=== PATIENT | male | born 1975 | race Caucasian/White ===

== ENCOUNTER 2019-02-22 17:18 | Emergency (ER) | payer BC ==
--- NOTE | 2019-02-22 17:37 | EDM.PDOC ---
ED HPI GENERAL MEDICAL PROBLEM - General Chief Complaint: Eye Problems Stated Complaint: LEFT EYE IRRITATION Time Seen by Provider: 02/22/19 17:36 Source of Information: Reports: Patient, Family (), Old Records ([facility] chart/EMR) History Limitations: Reports: No Limitations - History of Present Illness INITIAL COMMENTS - FREE TEXT/NARRATIVE: The patient was brought to the emergency room via private automobile by his for evaluation of a probable foreign body in his left eye. He was using an air compressor in his garage at about 16:00 hours when he felt a foreign body in his left eye. He is uncertain whether this was dust, etc. with no history of working with metal, etc.. The patient was wearing his regular glasses with safety not glasses not worn at that time. He has not significantly injured this eye in the past. He does not know when he had his last tetanus booster. The patient denies any chest pain/pressure, heart flutter, dizziness, orthostasis, orthopnea, diaphoresis, paresthesias, recent decreased exercise tolerance, or any other anginal-type symptoms. No recent history of abdominal pain, heartburn , nausea, diarrhea, melena, gross hematochezia, or any food intolerance, including fatty foods, etc.. The patient also denies any recent fever, cough, wheezing, dyspnea, etc.. No history of recent headaches, visual changes, diplopia, change in mental status, or other change in neurological status. Onset: Today, Sudden Onset Date: 02/22/19 Onset Time: 16:00 Duration: Constant Location: Reports: Other (Left eye). Denies: Head, Face, Neck, Chest, Abdomen, Back, Upper Extremity, Left, Upper Extremity, Right, Radiates to Quality: Reports: Same as Previous Episode (Foreign body sensation) Severity: Mild Improves with: Reports: None Worsens with: Reports: None Context: Reports: Trauma (As above). Denies: Sick Contact Associated Symptoms: Denies: Confusion, Chest Pain, Cough, Diaphoresis, Fever/ Chills, Headaches, Loss of Appetite, Malaise, Nausea/Vomiting, Rash, Shortness of Breath, Syncope, Weakness Treatments MOISTURE TESTER: Reports: Other (see below) (None) Left Eye Pain Score (Numeric/FACES): 3 - Related Data Allergies Allergy/AdvReac Type Severity Reaction Status Date / Time No Known Allergies Allergy Verified 02/22/19 17:23 Home Meds: Home Meds Albuterol [Proventil HFA] 1 inh PO Q4HR PRN 08/06/13 [History] Fluticasone/Salmeterol [Advair 250-50 Diskus] 1 inh PO BID 08/06/13 [History] Promethazine [Phenergan] 25 mg PO Q6H PRN #14 tab 08/06/13 [Rx] Lisinopril 20 mg PO DAILY 02/22/19 [History] Polymyxin B/Trimethoprim [PolyTrim Ophth Soln] 2 drop EYELF QID #1 bottle [Rx] Past Medical History HEENT History: Reports: Allergic Rhinitis, Impaired Vision, Other (See Below). Denies: Cataract, Glaucoma, Hard of Hearing, Macular Degeneration, Otitis Media , Retinal Detachment Other HEENT History: He wears glasses. Cardiovascular History: Reports: Hypertension, Other (See Below). Denies: Afib , Aneurysm, Arrhythmia, Blood Clots/VTE/DVT, CAD, Heart Murmur, High Cholesterol , VT, PVD, Syncope Other Cardiovascular History: History of fatty liver Respiratory History: Reports: Asthma, Bronchitis, Recurrent. Denies: COPD, Intubation, Difficult, Intubation, Previous, PE, Pneumothorax, Sleep Apnea, TB Gastrointestinal History: Reports: Other (See Below) Other Gastrointestinal History: Fatty liver by ultrasound Genitourinary History: Reports: None. Denies: Acute Renal Failure, BPH, Chronic Renal Insuffiency, Renal Calculus, Retention, Urinary, Urinary Incontinence, UTI, Recurrent Musculoskeletal History: Reports: None. Denies: Arthritis, Back Pain, Chronic, Fracture, Gout, Neck Pain, Chronic, Osteoarthritis, RA, SLE Neurological History: Reports: Vertigo, Other (See Below). Denies: Cerebral Aneurysms, Concussion, CVA, Head Trauma, Migraines, MS, Neuropathy, Peripheral, Parkinson's, Seizure, TIA Other Neuro History: Chronic vertigo Psychiatric History: Reports: Depression, Other (See Below). Denies: Anxiety Other Psychiatric History: History of situational depression at the of his brother. Endocrine/Metabolic History: Reports: Obesity/BMI 30+. Denies: Diabetes, Type I , Diabetes, Type II, Hypothyroidism, IDDM Hematologic History: Reports: None. Denies: Anemia, Blood Transfusion(s) Immunologic History: Reports: Other (See Below). Denies: AIDS, HIV, SLE Other Immunologic History: Recurrent herpes simplex type I - Infectious Disease History Infectious Disease History: Reports: Chicken Pox, Other (See Below). Denies: C- Difficile, Measles, Meningitis, Mononucleosis, MRSA, Mumps, Pertussis (Whooping Cough), Rubella, Scarlet Fever, Shingles, TB, VRE Other Infectious Disease History: Recurrent herpes simplex type I - Past Surgical History Head Surgeries/Procedures: Reports: None HEENT Surgical History: Reports: Naso-Sinus Surgery, Other (See Below). Denies : Adenoidectomy, Eye Surgery, Laser Surgery, LASIK, Myringotomy w Tube(s), Oral Surgery, Tonsillectomy Other HEENT Surgeries/Procedures: Rhinoplasty at age 21 for deviated septum repair. Cardiovascular Surgical History: Reports: None. Denies: Varicose Respiratory Surgical History: Reports: None. Denies: Thoracentesis GI Surgical History: Reports: None. Denies: Appendectomy, Colonoscopy, EGD, Hernia, Abdominal, Hernia, Inguinal, Hernia Repair/Other, Keagan Fundoplication Male Surgical History: Reports: Circumcision, Other (See Below). Denies: TURP-Transurethral Resection of Prostate, Vasectomy Other Male Surgeries/Procedures: Circumcision as an . Endocrine Surgical History: Reports: None. Denies: Thyroid Biopsy Neurological Surgical History: Reports: None. Denies: C-Spine, Discectomy, Laminectomy, Lumbar Spine, Sacral Spine, Spinal Fusion, Thoracic Spine, Vertebroplasty Musculoskeletal Surgical History: Reports: None. Denies: Arthroscopic Knee, Arthroscopic Procedure, Carpal Tunnel, Ganglion Cyst, Joint Replacement, ORIF, Shoulder Surgery Oncologic Surgical History: Reports: None Dermatological Surgical History: Reports: None - Past Imaging History Past Imaging History: Reports: Stress Testing (02/09/10.), Ultrasound (Abdominal ultrasound on 02/21/10.) Social & Family History - Family History Cardiac: Reports: Aneurysm, CAD, Hypertension, VT, Other (See Below) Other Cardiac Family History: Father with recurrent VT with secondary cardiomyopathy requiring transplant fatal in his 70s. Brother with fatal aortic aneurysm in his 40s. Parents with hypertension. Respiratory: Reports: Asthma Musculoskeletal: Reports: Arthritis, Other (See Below) Other Musculoskeletal Family History: Mother with Jaylen's disease. Endocrine/Metabolic: Reports: Diabetes, type II, IDDM, Other (See Below) Other Endocrine/Metabolic Family History: Mother with IDDM. - Tobacco Use Smoking Status *Q: Former Smoker Tobacco Use Within Last Twelve Months: No Years of Tobacco use: 3 Packs/Tins Daily: 0.5 Used Tobacco, but Quit: Yes Month/Year Tobacco Last Used: 1999 Smoking Cessation Information Provided To Patient: No Second Hand Smoke Exposure: No Second Hand Smoke Education Provided: No - Caffeine Use Caffeine Use: Reports: Coffee Caffeine Use Comment: ONE DAILY - Alcohol Use Alcohol Use History: Yes Days Per Week of Alcohol Use: 2 Number of Drinks Per Day: 2 Number of Drinks Per Day Comment: Usually beer. No previous DWIs, problems with alcohol abuse, etc. 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 ED EXAM GENERAL W FULL EYE - Physical Exam Exam: See Below Exam Limited By: No Limitations General Appearance: Alert, WD/WN, No Apparent Distress Eye Exam: Right Eye: Corneal Abrasion (0.1 mm and mid pupil region. No foreign body noted.), Left Eye: Conjunctival Injection (Mild), Bilateral Eye: Normal Fundi, PERRL, Vision Changes (20/20 both eyes and 20/25 left eye both with corrected vision), Other (No foreign body by lid eversion) Visual Acuity (L) 20/: 25 With Correction: Yes Eyelids: Bilateral: Normal Appearance Conjunctiva & Sclera: Left: Discharge (Minimal clear drainage), Injected (Mild) Cornea Exam: Left: Examined with Flourescein (1 mm superficial corneal ulcer as above) Extraocular Movements: Bilateral: Intact Pupils: Normal Accommodation Pupillary Size: Bilateral: 6 mm Pupillary Reaction: Bilateral: Brisk Anterior Chamber: Bilateral: Normal Appearance Posterior Chamber: Bilateral: Normal Funduscopic Ears: Normal External Exam, Normal Canal, Hearing Grossly Normal, Normal TMs Nose: Normal Inspection, Normal Mucosa, No Blood, Clear Rhinorrhea (Bilateral mild) Throat/Mouth: Normal Inspection, Normal Lips, Normal Teeth, Normal Gums, Normal Oropharynx, Normal Voice, No Airway Compromise. No: Dysphagia, Perioral Cyanosis Head: Atraumatic, Normocephalic. No: Facial Swelling, Facial Tenderness, Sinus Tenderness Neck: Normal Inspection, Supple, Non-Tender, Full Range of Motion. No: Lymphadenopathy (L), Lymphadenopathy (R), Thyromegaly Respiratory/Chest: No Respiratory Distress, Lungs Clear, Normal Breath Sounds, No Accessory Muscle Use, Chest Non-Tender. No: Pleural Rub, Retractions Cardiovascular: Normal Peripheral Pulses, Regular Rate, Rhythm, No Edema, No Gallop, No JVD, No Murmur, No Rub. No: Gallop/S3, Gallop/S4, Friction Rub GI/Abdominal: Normal Bowel Sounds, Soft, Non-Tender, No Organomegaly, No Distention, No Abnormal Bruit, No Mass, Other (Obese). No: Guarding (Male) Exam: Deferred Rectal (Males) Exam: Deferred Back Exam: Normal Inspection, Full Range of Motion. No: CVA Tenderness (L), CVA Tenderness (R), Muscle Spasm Extremities: Normal Inspection, Normal Range of Motion, Non-Tender, No Pedal Edema, Normal Capillary Refill. No: Nura's Sign Neurological: Alert, Oriented, CN II-XII Intact, Normal Cognition, Normal Gait, No Motor/Sensory Deficits Psychiatric: Normal Affect, Normal Mood Skin Exam: Warm, Dry, Intact, Normal Color, No Rash, Tattoo(s) (Multiple). No: Diaphoretic Lymphatic: No Adenopathy ED EYE w/ Add Procedure - Eye Procedure Alcaine Drops Administered: Yes Eye Irrigated w/ Saline (ccs): 30 Antibiotic Oinment/Drps Admin: Left Eye (Polytrim ophthalmic solution2 drops by nurse) Course - Vital Signs Last Recorded V/S: Last Vital Signs Temp 36.8 C 02/22/19 17:18 Pulse 99 02/22/19 17:30 Resp 20 02/22/19 17:30 BP 152/97 H 02/22/19 18:06 Pulse Ox 95 02/22/19 17:30 Vital Signs - 24 hr 02/22/19 02/22/1902/22/19 17:18 17:30 18:06 Temperature [ 36.8 C Temporal] Pulse, 95 99 Peripheral [ Right Pulse Oximetry] Respiratory 20 20 Rate Blood Pressure 153/110 H 147/113 H 152/97 H [Right Upper Arm] O2 Sat by Pulse 96 95 Oximetry - Orders/Labs/Meds Orders: Active Orders 24 hr Category Date Time Status Vaccines to be Administered [RC] PER UNIT ROUTINE Care 02/22/19 18:03 Ordered Obtain Past Medical Record [OM.PC] Routine Oth 02/22/19 17:38 Active Labs: None Meds: Medications Discontinued Medications Generic Name Dose Route Start Last Admin Trade Name Freq PRN Reason Stop Dose Admin Balanced Salt Solution 30 ml 02/22/19 17:38 02/22/19 17:47 Eye Stream Eye Rinse EYELF 02/22/19 17:39 30 ml ONETIME ONE Administration Diphtheria/Tetanus/Acell Pertussis 0.5 ml 02/22/19 18:03 02/22/19 18:08 Adacel IM 02/22/19 18:04 0.5 ml .ONCE ONE Administration Tetracaine HCl 1 ml 02/22/19 17:38 02/22/19 17:47 Tetracaine 0.5% Steri-Unit Gay EYELF 02/22/19 17:39 3 drop ASDIRECTED ONE Administration - Radiology Interpretation Free Text/Narrative:: None Departure - Departure Time of Disposition: 18:20 Disposition: Home, Self-Care 01 Condition: Good Clinical Impression: Chronic vertigo, Fatty liver, Asthma Corneal abrasion Qualifiers: Encounter type: initial encounter Laterality: left Qualified Code(s): S05.02XA - Injury of conjunctiva and corneal abrasion without foreign body, left eye, initial encounter Hypertension Qualifiers: Hypertension type: essential hypertension Qualified Code(s): I10 - Essential ( primary) hypertension Allergic rhinitis Qualifiers: Allergic rhinitis trigger: other Allergic rhinitis seasonality: non-seasonal Qualified Code(s): J30.89 - Other allergic rhinitis - Discharge Information *PRESCRIPTION DRUG MONITORING PROGRAM REVIEWED*: Not Applicable *COPY OF PRESCRIPTION DRUG MONITORING REPORT IN PATIENT SHAGGY: Not Applicable Prescriptions: Polymyxin B/Trimethoprim [PolyTrim Ophth Soln] 2 drop EYELF QID #1 bottle Instructions: Eye Foreign Body, [id number], Corneal Abrasion, [id number] Forms: ED Department Discharge Additional Instructions: 1. Follow up with your regular provider in 10-14 days as needed, if symptoms persist. Bring these discharge instructions with you to that visit.. 2. Polytrim eyedrops 2 drops in the affected eye 4 times a day with every 2 hours as needed for at least 5 days AND until 48 hours after complete resolution of symptoms as directed. You may use additional OTC artificial tears as needed as per label instructions. 3. Wear safety glasses with similar activities in the future as discussed 4. Tylenol 650 mg by mouth every 4 hours and/or OTC ibuprofen 2-3 tabs by mouth every 6 hours with food as directed./needed. You may stagger these medications for 48-72 hours only, which essentially means that you are receiving a pain medication about every 2 hours. 5. Immediately after this visit verify that your cellular telephone's voicemail has been activated and is empty. Also verify that your home telephone 's answering machine is operating properly and has space to receive messages. Note that it is sometimes necessary for us to be able to contact you at a later date to discuss your medical care. 6. Please remember that we are ALWAYS here for you and want to answer any questions you may have. Feel free to call the hospital any time and we call you back CORINNE. 7. Strict compliance with all medical therapy as discussed. Continue to observe your blood pressures and pulses closely through your regular provider. - Problem List & Annotations (1) Corneal abrasion SNOMED Code(s): 00930104 Code(s): S05.00XA - INJ CONJUNCTIVA AND CORNEAL ABRASION W/O FB, UNSP EYE, INIT Status: Acute Priority: High Onset Date: 02/22/19 Annotation/ Comment:: Polytrim ophthalmic solution initiated in the emergency room as above with emergency room prescription provided. Patient cautioned to wear safety glasses at all times. No evidence of foreign body by extensive exam, including perea lamp, etc. Qualifiers: Encounter type: initial encounter Laterality: left Qualified Code(s): S05.02XA - Injury of conjunctiva and corneal abrasion without foreign body, left eye, initial encounter (2) Hypertension SNOMED Code(s): 94995733 Code(s): I10 - ESSENTIAL (PRIMARY) HYPERTENSION Status: Acute Priority: High Annotation/Comment:: Blood pressure somewhat elevated today with the patient having not taken his medications for the last few days. He did take his medications this morning, however. Medication compliance is an issue per history from his . Therapeutic drug levels, importance of medication compliance, risk of CVA, etc. extensively discussed. Continue to observe closely by his regular provider. Qualifiers: Hypertension type: essential hypertension Qualified Code(s): I10 - Essential (primary) hypertension (3) Allergic rhinitis SNOMED Code(s): 50247052 Code(s): J30.9 - ALLERGIC RHINITIS, UNSPECIFIED Status: Chronic Priority : Medium Annotation/Comment:: Somewhat poor control recently. Observe for now. No recent fever or bronchitic type symptoms. Note current heart this time. Qualifiers: Allergic rhinitis trigger: other Allergic rhinitis seasonality: non- seasonal Qualified Code(s): J30.89 - Other allergic rhinitis (4) Asthma SNOMED Code(s): 047272749 Code(s): J45.909 - UNSPECIFIED ASTHMA, UNCOMPLICATED Status: Chronic Priority: Medium Current Visit: Yes Annotation/Comment:: As above Qualifiers: Asthma severity: mild Asthma persistence: intermittent Asthma complication type: uncomplicated Qualified Code(s): J45.20 - Mild intermittent asthma, uncomplicated (5) Chronic vertigo SNOMED Code(s): 79638551431172 Code(s): R42 - DIZZINESS AND GIDDINESS Status: Chronic Priority: Medium Annotation/Comment:: Stable by history (6) Fatty liver SNOMED Code(s): 022161891 Code(s): K76.0 - FATTY (CHANGE OF) LIVER, NOT ELSEWHERE CLASSIFIED Status: Chronic Priority: Medium Annotation/Comment:: Weight loss in moderation advisable. By patient history his recent lipid profile was normal with no current medical therapy. - Problem List Review Problem List Initiated/Reviewed/Updated: Yes - My Orders Last 24 Hours: My Active Orders 02/22/19 17:38 Obtain Past Medical Record [OM.PC] Routine 02/22/19 18:03 Vaccines to be Administered [RC] PER UNIT ROUTINE - Assessment/Plan Last 24 Hours: My Active Orders 02/22/19 17:38 Obtain Past Medical Record [OM.PC] Routine 02/22/19 18:03 Vaccines to be Administered [RC] PER UNIT ROUTINE Assessment:: As above Plan: As above. Extensive precautions were given to the patient and his , who are in agreement with the treatment plan. See Patient Instructions for further treatment and plan.
[2019-02-22] MEDS: Tetracaine HCl/PF 0.5% 4 ML Bottle EYELF ONE (17:47)
[2019-02-22] MEDS: Balanced Salt Solution Ophth Irrig 30 ML Bottle EYELF ONE (17:47)
[2019-02-22] MEDS: Diphtheria,Pertussis(Acell),Tetanus Vaccine 0.5 ML SDV IM ONE (18:08)
== END 2019-02-22 18:20 | disposition home or self-care (01) ==
LOC: LL.ED 17:18
DX: S05.02XA Injury of conjunctiva and corneal abrasion without foreign body, left eye, initial encounter (principal); K76.0 Fatty (change of) liver, not elsewhere classified; J45.909 Unspecified asthma, uncomplicated; R42 Dizziness and giddiness; J30.89 Other allergic rhinitis; I10 Essential (primary) hypertension; Z79.899 Other long term (current) drug therapy; Z23 Encounter for immunization; Z87.891 Personal history of nicotine dependence; X58.XXXA Exposure to other specified factors, initial encounter
CPT/HCPCS: 90471; 90715; 96372; 99283

== ENCOUNTER 2019-04-12 01:15 | Emergency (ER) | payer BC ==
[2019-04-12] MEDS ORDERED: Albuterol/Ipratropium 3.0-0.5 MG/3 ML Neb Soln NEB ONE (01:16)
[2019-04-12] MEDS ORDERED: Budesonide 0.5 MG/2 ML Neb Susp NEB ONE (01:35)
[2019-04-12] MEDS ORDERED: methylPREDNISolone Sodium Succinate 125 MG/2 ML SDV IM ONE (01:35)
[2019-04-12] MEDS ORDERED: diphenhydrAMINE 50 MG/ML SDV IM ONE (01:35)
--- NOTE | 2019-04-12 01:57 | EDM.PDOC ---
ED HPI GENERAL MEDICAL PROBLEM - General Chief Complaint: Respiratory Problem Stated Complaint: asthma exacerbation Time Seen by Provider: 04/12/19 01:35 Source of Information: Reports: Patient History Limitations: Reports: No Limitations - History of Present Illness INITIAL COMMENTS - FREE TEXT/NARRATIVE: Patient comes to ER complaining of acute asthma exacerbation that developed this past evening. Uncertain of exact trigger, but feels that it was in response to a chemical such as perfume. Used handheld inhaler at home multiple times, but did not improve. Has not taken any other meds for this. No other complaints. No recent illnesses/colds. No fevers. - Related Data Allergies Allergy/AdvReac Type Severity Reaction Status Date / Time No Known Allergies Allergy Verified 02/22/19 17:23 Home Meds: Home Meds Albuterol [Proventil HFA] 1 inh PO Q4HR PRN 08/06/13 [History] Fluticasone/Salmeterol [Advair 250-50 Diskus] 1 inh PO BID 08/06/13 [History] Promethazine [Phenergan] 25 mg PO Q6H PRN #14 tab 08/06/13 [Rx] Lisinopril 20 mg PO DAILY 02/22/19 [History] Polymyxin B/Trimethoprim [PolyTrim Ophth Soln] 2 drop EYELF QID #1 bottle [Rx] Past Medical History HEENT History: Reports: Allergic Rhinitis, Impaired Vision, Other (See Below). Denies: Cataract, Glaucoma, Hard of Hearing, Macular Degeneration, Otitis Media , Retinal Detachment Other HEENT History: He wears glasses. Cardiovascular History: Reports: Hypertension, Other (See Below). Denies: Afib , Aneurysm, Arrhythmia, Blood Clots/VTE/DVT, CAD, Heart Murmur, High Cholesterol , AZ, PVD, Syncope Other Cardiovascular History: History of fatty liver Respiratory History: Reports: Asthma, Bronchitis, Recurrent. Denies: COPD, Intubation, Difficult, Intubation, Previous, PE, Pneumothorax, Sleep Apnea, TB Gastrointestinal History: Reports: Other (See Below) Other Gastrointestinal History: Fatty liver by ultrasound Genitourinary History: Reports: None. Denies: Acute Renal Failure, BPH, Chronic Renal Insuffiency, Renal Calculus, Retention, Urinary, Urinary Incontinence, UTI, Recurrent Musculoskeletal History: Reports: None. Denies: Arthritis, Back Pain, Chronic, Fracture, Gout, Neck Pain, Chronic, Osteoarthritis, RA, SLE Neurological History: Reports: Vertigo, Other (See Below). Denies: Cerebral Aneurysms, Concussion, CVA, Head Trauma, Migraines, MS, Neuropathy, Peripheral, Parkinson's, Seizure, TIA Other Neuro History: Chronic vertigo Psychiatric History: Reports: Depression, Other (See Below). Denies: Anxiety Other Psychiatric History: History of situational depression at the of his brother. Endocrine/Metabolic History: Reports: Obesity/BMI 30+. Denies: Diabetes, Type I , Diabetes, Type II, Hypothyroidism, IDDM Hematologic History: Reports: None. Denies: Anemia, Blood Transfusion(s) Immunologic History: Reports: Other (See Below). Denies: AIDS, HIV, SLE Other Immunologic History: Recurrent herpes simplex type I - Infectious Disease History Infectious Disease History: Reports: Chicken Pox, Other (See Below). Denies: C- Difficile, Measles, Meningitis, Mononucleosis, MRSA, Mumps, Pertussis (Whooping Cough), Rubella, Scarlet Fever, Shingles, TB, VRE Other Infectious Disease History: Recurrent herpes simplex type I - Past Surgical History Head Surgeries/Procedures: Reports: None HEENT Surgical History: Reports: Naso-Sinus Surgery, Other (See Below). Denies : Adenoidectomy, Eye Surgery, Laser Surgery, LASIK, Myringotomy w Tube(s), Oral Surgery, Tonsillectomy Other HEENT Surgeries/Procedures: Rhinoplasty at age 21 for deviated septum repair. Cardiovascular Surgical History: Reports: None. Denies: Varicose Respiratory Surgical History: Reports: None. Denies: Thoracentesis GI Surgical History: Reports: None. Denies: Appendectomy, Colonoscopy, EGD, Hernia, Abdominal, Hernia, Inguinal, Hernia Repair/Other, [place] Fundoplication Male Surgical History: Reports: Circumcision, Other (See Below). Denies: TURP-Transurethral Resection of Prostate, Vasectomy Other Male Surgeries/Procedures: Circumcision as an . Endocrine Surgical History: Reports: None. Denies: Thyroid Biopsy Neurological Surgical History: Reports: None. Denies: C-Spine, Discectomy, Laminectomy, Lumbar Spine, Sacral Spine, Spinal Fusion, Thoracic Spine, Vertebroplasty Musculoskeletal Surgical History: Reports: None. Denies: Arthroscopic Knee, Arthroscopic Procedure, Carpal Tunnel, Ganglion Cyst, Joint Replacement, ORIF, Shoulder Surgery Oncologic Surgical History: Reports: None Dermatological Surgical History: Reports: None - Past Imaging History Past Imaging History: Reports: Stress Testing (02/09/10.), Ultrasound (Abdominal ultrasound on 02/21/10.) Social & Family History - Family History Cardiac: Reports: Aneurysm, CAD, Hypertension, AZ, Other (See Below) Other Cardiac Family History: Father with recurrent AZ with secondary cardiomyopathy requiring transplant fatal in his 70s. Brother with fatal aortic aneurysm in his 40s. Parents with hypertension. Respiratory: Reports: Asthma Musculoskeletal: Reports: Arthritis, Other (See Below) Other Musculoskeletal Family History: Mother with Jaylen's disease. Endocrine/Metabolic: Reports: Diabetes, type II, IDDM, Other (See Below) Other Endocrine/Metabolic Family History: Mother with IDDM. 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 ED EXAM, GENERAL - Physical Exam Exam: See Below Exam Limited By: No Limitations General Appearance: Alert, Anxious, Mild Distress Eye Exam: Bilateral Eye: EOMI, PERRL Ears: Normal External Exam Nose: No: Nasal Deformity, Nasal Swelling, Nasal Drainage Throat/Mouth: Normal Lips, Normal Voice, No Airway Compromise Head: Atraumatic, Normocephalic Neck: Supple, Non-Tender Respiratory/Chest: No Accessory Muscle Use, Chest Non-Tender, Wheezing ( bilaterally). No: Stridor, Accessory Muscle Use, Retractions Cardiovascular: No Murmur, Tachycardia GI/Abdominal: Soft, Non-Tender (Male) Exam: Deferred Rectal (Males) Exam: Deferred Back Exam: No: CVA Tenderness (L), CVA Tenderness (R) Extremities: Normal Range of Motion, Normal Capillary Refill Neurological: Alert, Oriented, Normal Cognition, Normal Gait, No Motor/Sensory Deficits Psychiatric: Normal Affect, Normal Mood Skin Exam: Warm, Dry, Intact, Normal Color Course - Orders/Labs/Meds Orders: Active Orders 24 hr Category Date Time Status RT Aerosol Therapy [RC] ASDIRECTED Care 04/12/19 01:20 Active RT Aerosol Therapy [RC] ASDIRECTED Care 04/12/19 01:36 Active Meds: Medications Discontinued Medications Generic Name Dose Route Start Last Admin Trade Name Davidq PRN Reason Stop Dose Admin Albuterol/Ipratropium 3 ml 04/12/19 01:16 04/12/19 01:17 Duoneb 3.0-0.5 Mg/3 Ml NEB 04/12/19 01:17 3 ml ONETIME ONE Administration Budesonide 0.5 mg 04/12/19 01:35 04/12/19 01:42 Pulmicort NEB 04/12/19 01:36 0.5 mg ONETIME ONE Administration Diphenhydramine HCl 50 mg 04/12/19 01:35 04/12/19 01:42 Benadryl IM 04/12/19 01:36 50 mg ONETIME ONE Administration Methylprednisolone Sodium Succinate 125 mg 04/12/19 01:35 04/12/19 01:45 Solu-Medrol IM 04/12/19 01:36 125 mg ONETIME ONE Administration - Re-Assessments/Exams Free Text/Narrative Re-Assessment/Exam: Patient received several neb treatments in addition to IM Benadryl and Solu- Medrol. Wheezing almost completely cleared. Vital signs stable. It was suggested that patient stay and be observed for another hour to make certain that symptoms did not recur. Patient stated that he felt significantly better and would like to go home. Precautions reviewed. Departure - Departure Time of Disposition: 01:55 Disposition: Home, Self-Care 01 Condition: Good Clinical Impression: Exacerbation of asthma Qualifiers: Asthma severity: moderate Asthma persistence: unspecified Qualified Code(s): J45.901 - Unspecified asthma with (acute) exacerbation - Discharge Information *PRESCRIPTION DRUG MONITORING PROGRAM REVIEWED*: Not Applicable *COPY OF PRESCRIPTION DRUG MONITORING REPORT IN PATIENT SHAGGY: Not Applicable Instructions: Methylprednisolone Solution for Injection Referrals: Kala Sotelo PA-C [Primary Care Provider] - Forms: ED Department Discharge Additional Instructions: Continue to observe for changes/return of any symptoms. Use home inhalers as directed. OK to take Benadryl 50mg every 6 hours for 24 hours to help with allergic response. Return to ER if you have problems. - My Orders Last 24 Hours: My Active Orders 04/12/19 01:20 RT Aerosol Therapy [RC] ASDIRECTED 04/12/19 01:36 RT Aerosol Therapy [RC] ASDIRECTED - Assessment/Plan Last 24 Hours: My Active Orders 04/12/19 01:20 RT Aerosol Therapy [RC] ASDIRECTED 04/12/19 01:36 RT Aerosol Therapy [RC] ASDIRECTED
== END 2019-04-12 02:15 | disposition home or self-care (01) ==
LOC: LL.ED 01:15
DX: J45.901 Unspecified asthma with (acute) exacerbation (principal); I10 Essential (primary) hypertension; E66.9 Obesity, unspecified; Z68.33 Body mass index [BMI] 33.0-33.9, adult; Z87.891 Personal history of nicotine dependence; Z79.899 Other long term (current) drug therapy; Z79.51 Long term (current) use of inhaled steroids
CPT/HCPCS: 94640; 96372; 99284; J1200; J2930; J7620-GY

== ENCOUNTER 2021-07-19 21:19 | Emergency (ER) | payer BC ==
[2021-07-19] MEDS: Albuterol/Ipratropium 3.0-0.5 MG/3 ML Neb Soln NEB ONE (21:45)
== END 2021-07-19 22:50 | disposition home or self-care (01) ==
LOC: LL.ED 21:19
DX: J45.901 Unspecified asthma with (acute) exacerbation (principal); I10 Essential (primary) hypertension; E66.9 Obesity, unspecified; Z68.30 Body mass index [BMI] 30.0-30.9, adult; Z79.899 Other long term (current) drug therapy
CPT/HCPCS: 94640; 99284-25; J7620-GY